=== PATIENT | female | born 1940 | race Caucasian/White ===

== ENCOUNTER → 2021-10-01 13:58 | Outpatient (CLI) | payer MEDICARE, OTHER, SELFPAY | PROVIDERS: Visit Provider Specialist | DX: R30.0 Dysuria (principal); N31.2 Flaccid neuropathic bladder, not elsewhere classified; R33.9 Retention of urine, unspecified; N95.2 Postmenopausal atrophic vaginitis; Z87.440 Personal history of urinary (tract) infections | CPT/HCPCS: 51798; 81002; 87077; 87086; 87186; 99214 ==